=== PATIENT | female | born 1970 | race Two or more races ===

== ENCOUNTER 2020-06-10 21:47 | Emergency (ER) | payer SELFPAY ==
[2020-06-10] MEDS ORDERED: Ondansetron 4 MG Tab.DIS PO ONE (22:39)
[2020-06-10] MEDS ORDERED: Ondansetron 4 MG/2 ML SDV IVPUSH ONE (22:40)
[2020-06-10] MEDS ORDERED: Sodium Chloride 0.9% 1,000 ML IV SCH (22:45)
--- NOTE | 2020-06-10 22:50 | EDM.PDOC ---
<Kinjal Rodgers - Last Filed: 06/10/20 23:04> ED HPI GENERAL MEDICAL PROBLEM - General Chief Complaint: Genitourinary Problem Stated Complaint: LOWER ABDORMINAL PAIN, BLOOD IN URIN Time Seen by Provider: 06/10/20 22:23 Source of Information: Reports: Patient History Limitations: Reports: No Limitations - History of Present Illness INITIAL COMMENTS - FREE TEXT/NARRATIVE: Patient is a 50-year-old female brought in by her granddaughter with complaints of urinary frequency, hematuria, bladder spasms, area, chills, and vomiting. She states her symptoms began last night. She has been trying to hold out to go to the clinic tomorrow, however the symptoms became too significant. She has been using [id number] Cystex with little relief. Vomiting developed earlier this afternoon. Patient has a history of kidney stones but denies recurrent urinary tract infections. She has had no back pain associated with this occurrence. States it does not feel like her kidney stones in the past. 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: Psychiatric History: Reports: Depression - Past Surgical History GI Surgical History: Reports: Appendectomy Female Surgical History: Reports: Hysterectomy, Kidney stone extraction Social & Family History - Tobacco Use Smoking Status *Q: Never Smoker - Caffeine Use Caffeine Use: Reports: None - Recreational Drug Use Recreational Drug Use: No ED ROS GENERAL - Review of Systems Review Of Systems: See Below Constitutional: Reports: Chills, Decreased Appetite HEENT: Reports: No Symptoms Respiratory: Reports: No Symptoms Cardiovascular: Reports: No Symptoms Endocrine: Reports: No Symptoms GI/Abdominal: Reports: No Symptoms : Reports: Dysuria, Frequency, Hematuria, Pain, Other (Suprapubic pain, bladder spasms) Neurological: Reports: No Symptoms ED EXAM, RENAL/ - Physical Exam Exam: See Below Exam Limited By: No Limitations General Appearance: Alert, Mild Distress Respiratory/Chest: No Respiratory Distress, Lungs Clear, Normal Breath Sounds, No Accessory Muscle Use, Chest Non-Tender Cardiovascular: Normal Peripheral Pulses, Regular Rate, Rhythm, No Edema, No Gallop, No JVD, No Murmur, No Rub GI/Abdominal: Normal Bowel Sounds, Soft, No Organomegaly, No Distention, No Abnormal Bruit, No Mass, Other (Suprapubic tenderness) Neurological: Alert, Oriented, CN II-XII Intact, Normal Cognition, Normal Gait, Normal Reflexes, No Motor/Sensory Deficits Psychiatric: Anxious Skin Exam: Warm, Dry, Intact, Normal Color, No Rash Course - Re-Assessments/Exams Free Text/Narrative Re-Assessment/Exam: Patient is a 50-year-old female who presents to the emergency department with onset of hematuria with dysuria, and frequency that began last night. Symptoms have been getting progressively worse throughout the day as she was waiting to wait to go to the clinic tomorrow. This afternoon she developed nausea and vomiting. She feels chilled, however does not have a known fever. She denies a history of urinary tract infection, but has had kidney stones in the past. She denies any flank pain. She is going back and forth to the bathroom every few minutes and has had an episode of vomiting. Urine sample has been sent over. I ordered a CBC, CMP, CRP, urinalysis. We will give her infusion of NS as well as Zofran. 06/10/20 22:52 Urinalysis was grossly positive for urinary tract infection. Urine has been sent for culture. We will give her Rocephin IV at this time. We are still waiting for the results of the blood work. 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 I will also send a prescription for Zofran as needed for nausea. 06/10/20 23:[address] Hooker. He will assume care and disposition of the patient. Departure - Departure Disposition: Home, Self-Care 01 Condition: Good Clinical Impression: UTI, Urinary tract infectious disease - Discharge Information *PRESCRIPTION DRUG MONITORING PROGRAM REVIEWED*: No *COPY OF PRESCRIPTION DRUG MONITORING REPORT IN PATIENT MEHNAZ: No Prescriptions: nitrofurantoin macrocrystaL [Nitrofurantoin] 1 cap PO Q12H #14 capsule Instructions: Urinary Tract Infection, Adult Referrals: Destiny Peraza, SERVICES ACCOUNT MANAGER [Nurse Practitioner] - Forms: ED Department Discharge Additional Instructions: You were seen in the emergency room for painful urination, the need to urinate often, and visible blood in your urine. Work-up in the ER included blood work and a urinalysis. Your blood work was unremarkable, however, the urinalysis confirmed that you have a urinary tract infection. A sample of your urine has been sent for culture. You were treated with an IV antibiotic called Rocephin in the ER, and a prescription for the antibiotic nitrofurantoin (Macrobid) has been sent to the [place] pharmacy located in the [facility] store. Take 1 tablet of nitrofurantoin every 12 hours, starting tomorrow morning, 06/11/2020, as prescribed. Finish the entire prescription unless told otherwise by a provider. You have also been started on the urinary tract infection pain reliever Pyridium. Pyridium is available [id number] as "Azo". Take 1 tablet of Azo 3 times a day for 2 days (a total of 6 tablets) to help to relieve your urinary symptoms. Be aware that Pyridium will turn your urine orange - this is normal. Stay adequately hydrated. It does not really matter what type of fluid you drink. We strongly recommend that you follow-up in the clinic this coming Thursday afternoon, 06/13/2020, to check on your urine culture results to make sure that you are on the correct antibiotic, and also to establish a PCP. If any other problems, including worsening of your symptoms, please do not hesitate to return to the ER. Sepsis Event Note (ED) - Evaluation Sepsis Screening Result: No Definite Risk <Royal Hooker - Last Filed: 06/11/20 00:41> Course - Vital Signs Last Recorded V/S: Last Vital Signs Temp 36.2 C 06/10/20 21:53 Pulse 80 06/10/20 21:53 Resp 20 06/10/20 21:53 BP 132/89 06/10/20 21:53 Pulse Ox 95 06/10/20 21:53 - Orders/Labs/Meds Orders: Active Orders 24 hr Category Date Time Status C-REACTIVE PROTEIN [CHEM] Stat Lab 06/10/20 22:39 Ordered CBC WITH AUTO DIFF [HEME] Stat Lab 06/10/20 22:39 Ordered COMPREHENSIVE METABOLIC PN,CMP [CHEM] Stat Lab 06/10/20 22:39 Ordered UA RFX NARENDRA AND CULT IF INDIC [URIN] Stat Lab 06/10/20 22:20 Received Sodium Chloride 0.9% [Normal Saline] 1,000 ml Med 06/10/20 22:45 Active IV ASDIRECTED cefTRIAXone [Rocephin] 2 gm Med 06/10/20 23:00 Active Sodium Chloride 0.9% [Normal Saline] 100 ml IV Q24H Medication Orders Sodium Chloride (Normal Saline) 1,000 mls @ 150 mls/hr IV ASDIRECTED NARESH Last Admin: 06/10/20 22:53 Dose: 150 mls/hr Documented by: JUAN RAMON Ceftriaxone Sodium 2 gm/ (Sodium Chloride) 100 mls @ 200 mls/hr IV Q24H NARESH Last Admin: 06/10/20 22:56 Dose: 200 mls/hr Documented by: JUAN RAMON Labs: Laboratory Tests 06/10/20 06/10/20 06/10/20 Range/Units 22:20 22:48 22:48 WBC 15.58 H (3.98-10.04) K/mm3 RBC 4.97 (3.98-5.22) M/mm3 Hgb 14.6 (11.2-15.7) gm/dl Hct 44.3 (34.1-44.9) % MCV 89.1 (79.4-94.8) fl MCH 29.4 (25.6-32.2) pg MCHC 33.0 (32.2-35.5) g/dl RDW Std Deviation 44.5 (36.4-46.3) fL Plt Count 291 (182-369) K/mm3 MPV 9.1 L (9.4-12.3) fl Neut % (Auto) 66.4 (34.0-71.1) % Lymph % (Auto) 26.1 (19.3-51.7) % [place] % (Auto) 6.1 (4.7-12.5) % Eos % (Auto) 0.8 (0.7-5.8) Baso % (Auto) 0.3 (0.1-1.2) % Neut # (Auto) 10.35 H (1.56-6.13) K/mm3 Lymph # (Auto) 4.07 H (1.18-3.74) K/mm3 [place] # (Auto) 0.95 H (0.24-0.36) K/mm3 Eos # (Auto) 0.12 (0.04-0.36) K/mm3 Baso # (Auto) 0.04 (0.01-0.08) K/mm3 Manual Slide Review Normal smear Sodium 139 (136-145) mEq/L Potassium 3.3 L (3.5-5.1) mEq/L Chloride 100 (98-107) mEq/L Carbon Dioxide 28 (21-32) mEq/L Anion Gap 14.3 (5-15) BUN 9 (7-18) mg/dL Creatinine 0.9 (0.55-1.02) mg/dL Est Cr Clr Drug Dosing 61.86 mL/min Estimated GFR (MDRD) > 60 (>60) mL/min BUN/Creatinine Ratio 10.0 L (14-18) Glucose 124 H (74-106) mg/dL Calcium 8.6 (8.5-10.1) mg/dL Total Bilirubin 0.5 (0.2-1.0) mg/dL AST 46 H (15-37) U/L ALT 97 H (14-59) U/L Alkaline Phosphatase 107 (46-116) U/L C-Reactive Protein 2.6 H* (<1.0) mg/dL Total Protein 8.1 (6.4-8.2) g/dl Albumin 3.6 (3.4-5.0) g/dl Globulin 4.5 gm/dL Albumin/Globulin Ratio 0.8 L (1-2) Urine Color Doctor Phillips H (Yellow) Urine Appearance Cloudy H (Clear) Urine pH 7.0 (5.0-8.0) Ur Specific [place] 1.020 (1.005-1.030) Urine Protein 2+ H (Negative) Urine Glucose (UA) Negative (Negative) Urine Ketones Negative (Negative) Urine Occult Blood 3+ H (Negative) Urine Nitrite Negative (Negative) Urine Bilirubin Negative (Negative) Urine Urobilinogen 0.2 (0.2-1.0) Ur Leukocyte Esterase 3+ H (Negative) Urine RBC >100 H (0-5) /hpf Urine WBC 30-40 H (0-5) /hpf Ur Squamous Epith Cells 0-5 (0-5) /hpf Urine Bacteria Moderate H (FEW) /hpf Urine Mucus Few (FEW) /hpf Meds: Medications Generic Name Dose Route Start Last Admin Trade Name [place] PRN Reason Stop Dose Admin Sodium Chloride 1,000 mls @ 150 mls/hr 06/10/20 22:45 06/10/20 22:53 Normal Saline IV 150 mls/hr ASDIRECTED NARESH Administration Ceftriaxone Sodium 2 gm/ 100 mls @ 200 mls/hr 06/10/20 23:00 06/10/20 22:56 Sodium Chloride IV 200 mls/hr Q24H NARESH Administration Discontinued Medications Generic Name Dose Route Start Last Admin Trade Name Freq PRN Reason Stop Dose Admin Diphenhydramine HCl 50 mg 06/10/20 23:59 06/11/20 00:02 Benadryl IVPUSH 06/11/20 00:00 50 mg ONETIME ONE Administration Diphenhydramine HCl Confirm 06/11/20 00:01 06/11/20 00:15 Benadryl Administered 06/11/20 00:02 Not Given Dose 50 mg .ROUTE .STK-MED ONE Ondansetron HCl 4 mg 06/10/20 22:39 Zofran Odt PO 06/10/20 22:40 ONETIME ONE Ondansetron HCl 4 mg 06/10/20 22:40 06/10/20 22:53 Zofran IVPUSH 06/10/20 22:41 4 mg ONETIME ONE Administration Phenazopyridine HCl 190 mg 06/11/20 09:00 Urinary Pain Relief PO TIDPC NARESH Phenazopyridine HCl Confirm 06/10/20 22:59 06/10/20 23:01 Urinary Pain Relief Administered 06/10/20 23:00 Not Given Dose 190 mg .ROUTE .STK-MED ONE Phenazopyridine HCl 190 mg 06/10/20 23:01 06/10/20 23:01 Urinary Pain Relief PO 06/10/20 23:02 190 mg TIDPC ONE Administration - Re-Assessments/Exams Free Text/Narrative Re-Assessment/Exam: 06/10/20 23:35 Care of the patient assumed from Ms. Rodgers. The patient's CBC is remarkable for WBC count elevated at 15.58, with the remainder of the CBC being unremarkable. Her CMP is remarkable for a potassium slightly depressed at 3.3, and a blood glucose mildly elevated 124. Her AST/ALT are mildly elevated at 46/97, respectively, with the remainder of her CMP being unremarkable. Her CRP is mildly elevated at 2.6. 06/10/20 23:49 Test results discussed with the patient and her daughter, who acted as a grader marker. As above, the patient appears to have a UTI, however, she does not have a fever, and does not have flank pain or tenderness, therefore she does not appear to have pyelonephritis. I am therefore recommending that she be treated with a 5 to 7-day course of nitrofurantoin, not ciprofloxacin. I will also start her on Pyridium, that she can continue as [id number] Azo. Lastly, I will refer her to the clinic. I would like her to follow-up on Thursday afternoon, 06/13 2020, to not only check on her urine culture results, to make sure that she is on the correct antibiotic, but to also establish a PCP. 06/10/20 23:59 Notified by Taryn FERRERA that the patient has developed pruritus and a possible rash. The patient is allergic to naproxen. She may not be aware of it, but the [id number] Cystex that she took contains sodium salicylate, an NSAID. I have ordered 50 mg of IV Benadryl. We will keep her here in the ED to make sure that she recovers. 06/11/20 00:41 The patient is feeling all better. I will discharge her home. Departure - Departure Time of Disposition: 23:50 Condition: Good Sepsis Event Note (ED) - Focused Exam Vital Signs: Vital Signs Temp Pulse Resp BP Pulse Ox 06/10/20 21:53 36.2 C 80 20 132/89 95
[2020-06-10] MEDS ORDERED: Phenazopyridine 95 MG Tab ONE (22:59)
[2020-06-10] MEDS ORDERED: cefTRIAXone 2 GM in Sodium Chloride 0.9% 100 ML IV SCH (23:00)
[2020-06-10] MEDS ORDERED: Phenazopyridine 95 MG Tab PO ONE (23:01)
[2020-06-10] MEDS ORDERED: Phenazopyridine 95 MG Tab PO STA (23:49)
[2020-06-10] MEDS ORDERED: diphenhydrAMINE 50 MG/ML SDV IVPUSH ONE (23:59)
[2020-06-11] MEDS ORDERED: diphenhydrAMINE 50 MG/ML SDV ONE (00:01)
[2020-06-11] MEDS ORDERED: Phenazopyridine 95 MG Tab PO SCH (09:00)
== END 2020-06-11 01:00 | disposition home or self-care (01) ==
LOC: JD.ED 21:47
DX: N39.0 Urinary tract infection, site not specified (principal); Z88.8 Allergy status to other drugs, medicaments and biological substances; Z79.899 Other long term (current) drug therapy; I10 Essential (primary) hypertension; Z87.442 Personal history of urinary calculi; Z90.49 Acquired absence of other specified parts of digestive tract; Z90.710 Acquired absence of both cervix and uterus
CPT/HCPCS: 36415; 80053; 81001; 81003; 85025; 86140; 87086; 87186; 96361; 96365; 96375; 99284; A9270; J0696; J1200; J2405; J7030; J7050; 99282